=== PATIENT | male | born 1980 | race Caucasian/White ===

== ENCOUNTER 2019-12-31 00:20 | Emergency (ER) | payer MEDICAID ==
--- NOTE | 2019-12-31 18:36 | NUR ---
REFERANCE DOWNTIME PAPERWORK
== END 2019-12-31 04:30 | disposition left against medical advice (07) ==
LOC: SED 00:20
DX: R07.89 Other chest pain (principal)
CPT/HCPCS: 71045; 99283

== ENCOUNTER 2021-04-26 22:57 | Emergency (ER) | payer OTHER, MEDICAID, SELFPAY ==
--- NOTE | 2021-04-26 23:30 | NUR ---
Called pt 3x, no anser. Patient left without being seen. No further treatment provided. ER MD aware
== END 2021-04-26 23:30 | disposition left against medical advice (07) ==
LOC: SED 22:57
DX: R11.10 Vomiting, unspecified (principal); Z53.21 Procedure and treatment not carried out due to patient leaving prior to being seen by health care provider